=== PATIENT | female | born 1940 | race Caucasian/White ===

== ENCOUNTER 2021-08-08 21:19 | Emergency (ER) | payer MEDICARE, OTHER, SELFPAY ==
[2021-08-08 21:24] VITALS: BMI 31.1
--- NOTE | 2021-08-08 21:28 | CTR_ITS ---
PROCEDURE INFORMATION: Exam: CT Maxillofacial Without Contrast Exam date and time: 08/08/2021 9:52 PM Age: 81 years old Clinical indication: Injury or trauma; Blunt trauma (contusions or hematomas); Nose; Injury details: Syncope episode with fall TECHNIQUE: Imaging protocol: Computed tomography of the of the face without contrast. Radiation optimization: All CT scans at this facility use at least one of these dose optimization techniques: automated exposure control; mA and/or kV adjustment per patient size (includes targeted exams where dose is matched to clinical indication); or iterative reconstruction. COMPARISON: CT head wo con* [id number] 08/08/2021 9:50 PM RADIATION DOSE METRICS: Total DLP (mGy-cm): 633.12 FINDINGS: Orbital cavities: Orbits are normal. Globes are unremarkable. Bones/joints: No fracture of the zygomatic arches. No fracture of the orbits. No fracture of the sinuses. No fracture of the maxilla. No fracture or dislocation of the mandible. There are degenerative changes of the TM joints, more severe on the left. Paranasal sinuses: There is mucosal thickening in the sinuses. No air-fluid levels. Soft tissues: Unremarkable. Nasal cavity: There is deviation of the bony nasal septum. No acute septal fracture. Possible fracture of the anterior right nasal process on series 2, image [address]/CT facial bones wo con* [id number] IMPRESSION: Possible nondisplaced fracture of the anterior right nasal process. Facial bones are otherwise intact.
--- NOTE | 2021-08-08 21:28 | CTR_ITS ---
PROCEDURE INFORMATION: Exam: CT Head Without Contrast Exam date and time: 08/08/2021 9:50 PM Age: 81 years old Clinical indication: Injury or trauma; Fall; Blunt trauma (contusions or hematomas) TECHNIQUE: Imaging protocol: Computed tomography of the head without contrast. Radiation optimization: All CT scans at this facility use at least one of these dose optimization techniques: automated exposure control; mA and/or kV adjustment per patient size (includes targeted exams where dose is matched to clinical indication); or iterative reconstruction. COMPARISON: No relevant prior studies available. RADIATION DOSE METRICS: Total DLP (mGy-cm): 792.69 FINDINGS: Brain: There is age-appropriate volume loss. There is no infarct. There is no hemorrhage or extra-axial collection. Right frontal, basal ganglia and left cerebellar calcifications are noted. This could be degenerative or vascular. No associated edema or mass effect. Cerebral ventricles: There is no hydrocephalus. Paranasal sinuses: See maxillofacial CT. Mastoid air cells: Visualized mastoid air cells are well aerated. Bones/joints: No calvarial fracture. See maxillofacial CT Soft tissues: Unremarkable. CT/CT head wo con* [id number] IMPRESSION: No acute intracranial injury or lesion
--- NOTE | 2021-08-08 21:28 | CTR_ITS ---
PROCEDURE INFORMATION: Exam: CT Cervical Spine Without Contrast Exam date and time: 08/08/2021 9:55 PM Age: 81 years old Clinical indication: Injury or trauma; Fall; Blunt trauma TECHNIQUE: Imaging protocol: Computed tomography of the cervical spine without contrast. Radiation optimization: All CT scans at this facility use at least one of these dose optimization techniques: automated exposure control; mA and/or kV adjustment per patient size (includes targeted exams where dose is matched to clinical indication); or iterative reconstruction. COMPARISON: CT facial bones wo con* [id number] 08/08/2021 9:52 PM RADIATION DOSE METRICS: Total DLP (mGy-cm): 476.26 FINDINGS: Bones/joints: There is no vertebral fracture. The vertebral bodies maintain their height and alignment. There is no fracture of the posterior elements. There is mild anterolisthesis at C4-C5. Alignment is otherwise normal. There is spondylosis and disc Discs/Spinal canal/Neural foramina: Space narrowing at C5-C6 and C6-C7. There are small posterior osteophytes and disc bulges. There is no central spinal stenosis in the cervical spine. There is foraminal stenosis at multiple levels most severe on the left at C4-C5 and on the right at C5-C6. Lungs: Lung apices are normal. Soft tissues: Unremarkable. CT/CT cervical spin wo con* [id number] IMPRESSION: No fracture of the cervical spine
--- NOTE | 2021-08-08 21:28 | XRR_ITS ---
PROCEDURE INFORMATION: Exam: XR Chest Exam date and time: 08/08/2021 10:10 PM Age: 81 years old Clinical indication: Injury or trauma; Fall; Blunt trauma (contusions or hematomas); Additional info: Syncope TECHNIQUE: Imaging protocol: Radiologic exam of the chest. Views: 1 view. COMPARISON: CT cervical spin wo con* [id number] 08/08/2021 9:55 PM FINDINGS: Lungs: Mildly hyperaerated lungs consistent with deep inspiratory effort vs reactive airway disease vs mild COPD . Pleural spaces: Unremarkable. No pleural effusion. No pneumothorax. Heart/Mediastinum: Unremarkable. No cardiomegaly. Bones/joints: Unremarkable. XR/XR chest 1V portable [id number] IMPRESSION: Mildly hyperaerated lungs consistent with deep inspiratory effort vs reactive airway disease vs mild COPD .
--- NOTE | 2021-08-08 21:28 | ECG_ITS ---
[facility] Test Date: 2021-08-08 Pat Name: Ericka Dutta Department: Room: Gender: Female [employer] Maker: : 1940 Requested By: Chuck Jenkins Order Number: [id number] Ricardo MD: Latricia Gandhi M.D. Measurements Intervals Anderson Rate: P: VA: QRS: QRSD: T: QT: QTc: Interpretive Statements SINUS RHYTHM WITH ISOLATED PVC'S WARNING: DATA QUALITY MAY AFFECT INTERPRETATION No previous ECG available for comparison Electronically Signed On 08-09-2021 17:07:15 CDT by Latricia Gandhi M.D. [id number]
[2021-08-08 21:34] VITALS: BP 159/85; PULSE 71; RESP 16; TEMP 36.7; O2SAT 95
--- NOTE | 2021-08-08 21:35 | ED_ITS ---
HPI - Trauma General: Chief Complaint: Trauma Stated Complaint: syncope fall head injury Time Seen by Provider: 08/08/21 21:26 Source: patient and EMS Mode of arrival: EMS Limitations: no limitations History of Present Illness: 81-year-old female who [facility] out [facility] and had a syncopal event. States she has been having a sinus infection has been feeling lightheaded. States that she had felt lightheaded and then passed out. It was witnessed she did hit her head she has a headache along with some slight neck pain nasal pain. She denies any chest pain or headache before the event. States she feels much improved currently has no symptoms at this time. Associated symptoms: Reports headache(s) and syncope; Denies abdominal pain, back pain, chest pain, chills, dental pain, fever(s), nausea or vomiting Review of Systems Const: Denies: fever(s), chills, body aches or change in appetite Eyes: Denies: blurry vision or eye discomfort ENMT: Denies: throat pain or dental pain Card: Reports: syncope; Denies: chest pain Resp: Denies: dyspnea GI: Denies: abdominal pain, nausea, vomiting or diarrhea : Denies: dysuria Musc: Denies: neck pain or back pain Skin/Breast: Denies: rash Neuro: Reports: headache(s) Psych: Denies: depression Riley/Lymph: Denies: easy bruising All/Imm: Denies: urticaria PFSH ED PFSH: Medical History (Updated 08/08/21 @ 23:36 by Chuck Jenkins MD) No pertinent past medical history Social History (Updated 08/08/21 @ 21:36 by Chcuk Jenkins MD) Substance/Drug Use: never Physical Exam Const: COMMON NORMALS: no acute distress, patient oriented x3 and healthy appearing HENMT: COMMON NORMALS: normocephalic; head/scalp not atraumatic (contusion to forhead and bridge of nose) HEAD & SCALP: normocephalic; not atraumatic (contusion to forhead and bridge of nose) Eye: COMMON NORMALS: Equal, round and reactive pupils present and EOMs intact bilaterally PUPIL: Yes Equal, round and reactive pupils present Neck/C-Spine: OTHER: in c collar Chest: COMMONS NORMALS: normal inspection of the chest and normal palpation of entire chest wall Resp: COMMON NORMALS: normal respiratory effort, No retractions, No use of accessory muscles and clear to auscultation bilaterally AUSCULTATION: clear to auscultation bilaterally Cardio: COMMON NORMALS: regular rate, regular rhythm and No murmurs present (Cardio) RATE: regular rate RHYTHM: regular rhythm GI: COMMON NORMALS: Normal to inspection, nondistended, normoactive bowel sounds present, Soft to palpation, non-tender and no masses PALPATION: Yes Soft to palpation Extremity: COMMON NORMALS: normal to inspection and full ROM Neuro: COMMON NORMALS: patient oriented x3, moves all extremities and no focal motor deficits Psych: COMMON NORMALS: mental status grossly normal, Normal thought process present and cooperative THOUGHT PROCESS: Normal thought process present Skin: COMMON NORMALS: no rashes or lesions noted and no wounds GENERAL SKIN EXAM: no rashes or lesions noted Course Vital Signs: Vital signs: Vital Signs Temperature 98.0 F 08/08/21 21:34 Pulse Rate 71 08/08/21 21:34 Respiratory Rate 16 08/08/21 21:34 Blood Pressure 159/85 08/08/21 21:34 Pulse Oximetry 95 08/08/21 21:34 MDM - Trauma Medical Decision Making Patient presents here with a syncopal event likely vagal response. She is well- appearing here head CT is normal she has no other signs of injury besides a nondisplaced nasal fracture her lab works normal as well she is able to ambulate here without any difficulty she is stable for discharge is to follow-up with her PCP in 2 to 4 days and return if worsening. Lab Data : 08/08/21 21:36 08/08/21 21:36 Radiology Impressions Cervical Spine CT 08/08/21 21:28 IMPRESSION: No fracture of the cervical spine Chest X-Ray 08/08/21 21:28 IMPRESSION: Mildly hyperaerated lungs consistent with deep inspiratory effort vs reactive airway disease vs mild COPD . Face CT 08/08/21 21:28 IMPRESSION: Possible nondisplaced fracture of the anterior right nasal process. Facial bones are otherwise intact. Head CT 08/08/21 21:28 IMPRESSION: No acute intracranial injury or lesion Laboratory Results WBC 10.7 10^3/uL (4.0-10.0) H 08/08/21 21:36 RBC 4.20 10^6/uL (4.1-5.3) 08/08/21 21:36 Hgb 13.0 g/dL (11.5-15.3) 08/08/21 21:36 Hct 39.2 % (37.0-47.0) 08/08/21 21:36 MCV 93.3 fl (81-99) 08/08/21 21:36 MCH 31.0 pg (28.0-34.0) 08/08/21 21:36 MCHC 33.2 g/dL (30.0-36.0) 08/08/21 21:36 RDW 13.0 % (12.1-15.1) 08/08/21 21:36 Plt Count 229 10^3/cmm (130-400) 08/08/21 21:36 MPV 11.3 fL (7.4-10.4) H 08/08/21 21:36 Neut % (Auto) 51.6 % 08/08/21 21:36 Lymph % (Auto) 37.1 % 08/08/21 21:36 Harrison % (Auto) 8.2 % 08/08/21 21:36 Eos % (Auto) 2.2 % 08/08/21 21:36 Baso % (Auto) 0.4 % 08/08/21 21:36 Neut # (Auto) 5.50 10^3/uL (1.8-7.7) 08/08/21 21:36 Lymph # (Auto) 4.0 10^3/uL (0.8-4.8) 08/08/21 21:36 Harrison # (Auto) 0.9 10^3/uL (0.2-0.9) 08/08/21 21:36 Eos # (Auto) 0.2 10^3/uL (0.0-0.8) 08/08/21 21:36 Baso # (Auto) 0.0 10^3/uL (0.0-0.1) 08/08/21 21:36 Nucleated RBC % (auto) 0 % 08/08/21 21:36 Nucleated RBCs # 0.0 /100WBC 08/08/21 21:36 PT 13.90 SECONDS (12.1-14.9) 08/08/21 22:09 INR 1.04 (0.8-1.2) 08/08/21 22:09 Sodium 137 mmol/L (136-145) 08/08/21 21:36 Potassium 3.8 mmol/L (3.5-5.1) 08/08/21 21:36 Chloride 97 mmol/L (98-107) L 08/08/21 21:36 Carbon Dioxide 28 mmol/L (22-29) 08/08/21 21:36 Anion Gap 15.8 (5-19) 08/08/21 21:36 BUN 19 mg/dL (8-23) 08/08/21 21:36 Creatinine 1.1 mg/dL (0.5-0.9) H 08/08/21 21:36 GFR Calculation Not Reportable 08/08/21 21:36 Glucose 109 mg/dL (65-115) 08/08/21 21:36 Calculated Osmolality 287 mOsm/kg (285-295) 08/08/21 21:36 Calcium 9.3 mg/dL (8.5-10.5) 08/08/21 21:36 Total Bilirubin 0.2 mg/dL (0.15-1.2) 08/08/21 21:36 AST 15 U/L (0-32) 08/08/21 21:36 ALT 11 U/L (0-33) 08/08/21 21:36 Alkaline Phosphatase 58 IU/L (35-105) 08/08/21 21:36 Troponin T Baseline 8 ng/L (0-10) 08/08/21 21:36 Total Protein 6.5 g/dL (6.6-8.7) L 08/08/21 21:36 Albumin 4.7 g/dL (3.5-5.2) 08/08/21 21:36 Globulin 1.8 g/dL (1.3-4.6) 08/08/21 21:36 EKG Data EKG 1: I personally reviewed and interpreted this EKG as follows: EKG interpretation date: 08/08/21 EKG interpretation time: 21:44 Interpretation: nsr no st or t wave abnormalities Discharge Plan Discharge Patient Disposition: Home Clinical Impression: Syncope Qualifiers: Syncope type: unspecified Qualified Code(s): R55 - Syncope and collapse Closed fracture nasal bone Qualifiers: Encounter type: initial encounter Qualified Code(s): S02.2XXA - Fracture of nasal bones, initial encounter for closed fracture Discharge Orders: Discharge ED (Routine); Ordered 08/08/21 Ordered By: Chuck Jenkins Referrals: Sandip Whittington [Referring] - 1-3 days Discharge Diet: Advance as tolerated Discharge Activity: Resume usual activity Patient Instructions: Nasal Fracture (ED), Syncope (ED) Coding Level of Care Code ED Commercial Journeyman Electrician for Chg Fwd Exam Comprehensive
[2021-08-08 21:44] LABS: Basophils % 0.4 %; Eosinophils # 0.2 10^3/uL (0.0-0.8); Eosinophils % 2.2 %; Hematocrit 39.2 % (37.0-47.0); Lymphocytes % 37.1 %; Mean Corpuscular HGB Conc 33.2 g/dL (30.0-36.0); Mean Corpuscular Volume 93.3 fl (81-99); Mean Platelet Volume 11.3 fL (7.4-10.4); Monocytes # 0.9 10^3/uL (0.2-0.9); Monocytes % 8.2 %; Neutrophils % 51.6 %; Nucleated Red Blood Cells % 0 %; Platelet Count 229 10^3/cmm (130-400); White Blood Count 10.7 10^3/uL (4.0-10.0)
[2021-08-08 22:06] LABS: Troponin(5th) Baseline 8 ng/L (0-10)
[2021-08-08 22:09] LABS: Alanine Aminotransferase 11 U/L (0-33); Albumin Level 4.7 g/dL (3.5-5.2); Alkaline Phosphatase 58 IU/L (35-105); Anion Gap 15.8 (5-19); Aspartate Amino Transferase 15 U/L (0-32); Blood Urea Nitrogen 19 mg/dL (8-23); Calcium 9.3 mg/dL (8.5-10.5); Carbon Dioxide 28 mmol/L (22-29); Chloride 97 mmol/L (98-107); Globulin 1.8 g/dL (1.3-4.6); Glucose 109 mg/dL (65-115); Osmolality Calculated 287 mOsm/kg (285-295); Potassium 3.8 mmol/L (3.5-5.1); Sodium 137 mmol/L (136-145); Total Bilirubin 0.2 mg/dL (0.15-1.2); Total Protein 6.5 g/dL (6.6-8.7)
[2021-08-08 22:24] LABS: INR 1.04 (0.8-1.2)
[2021-08-08] MEDS: sodium chloride 0.9% 1,000 ML 999 ML IV (22:45)
--- NOTE | 2021-08-09 00:21 | PC.NURSE ---
0000- C-collar removed per provider . patient in no obivous distress.
[2021-08-09 00:22] VITALS: BP 149/81; PULSE 68; RESP 16; TEMP 36.8; O2SAT 99
== END 2021-08-09 00:24 | disposition home or self-care (01) ==
PROVIDERS: Emergency Provider Emergency Medicine
DX: R55 Syncope and collapse (principal); S02.2XXA Fracture of nasal bones, initial encounter for closed fracture; W18.30XA Fall on same level, unspecified, initial encounter
CPT/HCPCS: 70450; 70486; 71045; 72125; 80053; 84484; 85025; 85610; 93005; 96360; 99285; J7030